=== PATIENT | female | born 1955 | race Caucasian/White ===

== ENCOUNTER → 2022-06-19 | Outpatient (CLI) | payer OTHER | LOC: LAB 15:15 → LAB SHORT 15:15 | DX: J02.9 Acute pharyngitis, unspecified (principal) | CPT/HCPCS: 87077; 87081; 87185 ==

== ENCOUNTER → 2023-12-16 | Outpatient (CLI) | payer OTHER | LOC: LAB SHORT 13:24 → LAB 13:24 | DX: R30.0 Dysuria (principal) | CPT/HCPCS: 87086 ==